=== PATIENT | male | born 1970 | race Caucasian/White ===

== ENCOUNTER 2025-10-15 09:22 | Emergency (ER) | payer BC, SELFPAY ==
[2025-10-15 09:28] VITALS: BP 176/96
[2025-10-15 09:34] VITALS: BMI 42.1
--- NOTE | 2025-10-15 09:54 | ED.GENMED ---
History of Present Illness
General
Chief Complaint: Back Pain
Source: patient
Exam Limitations: none
Time Seen by Provider: 10/15/25 09:33
History of Present Illness
History of Present Illness:
54yoM with a history of hypertension, VERONIKA, obesity, and hypothyroidism presenting with his for evaluation of low back pain. Patient was dressing his child this morning around 7am when he suddenly felt a pop in his low back that brought him to
his knees. He states he was crawling due to the pain. He took 800mg ibuprofen with some improvement. Pain is now an 8/10 in severity. Pain is localized to the lower back and does not radiate. Pain is worse with movement. He is worried that he
may have herniated a disc. He denies any fevers, difficulty urinating, incontinence, fevers, saddle anesthesia, paresthesias, weakness. No prior back surgeries.
Past History
Past History
ED Past Medical History: Hypothyroidism
ED Past Surgical History: None
Social History
Tobacco: Non-smoker
Alcohol: Occasional
Drug: None
Personal:
Living: with family
Employment: Employed
Phy Exam
General Physical Exam
General Presentation: well appearing and no apparent distress
General Skin: warm and dry
General Habitus: normal
General Mental: alert
ENT Exam
ENT Exam: normocephalic
Cardiovascular Exam
Cardiovascular Exam: normal peripheral pulses (2+ PT pulses bilaterally)
Pulmonary Exam
Pulmonary Exam: no respiratory distress
Neurological Exam
Neurological Exam: alert and no motor deficits (5/5 strength in bilateral lower extremities)
Musculoskeletal Exam
Musculoskeletal Exam: other (+Tenderness to midline lower lumbar region. No skin changes or step-offs.)
Skin Exam
Skin Exam: normal color and warm/dry
Psychiatric Exam
Psychiatric Exam: normal mood/affect
Course
Orders/Labs/Results
Orders:
Orders
10/15/25 09:52
Acetaminophen [Tylenol] 1,000 mg PO NOW STA
Lidocaine [Lidocaine 4% Patch] 1 patch TOPICAL NOW STA
Apply Lidocaine patch(s) to:: low back
CR Lumbar Spine Comp Min 4 Vw* Urgent
Comment:
Reason For Exam: low back pain
10/15/25 10:14
Methocarbamol 1,000 mg PO NOW STA
Vital Signs
Initial and Last Documented VS:
Initial Vital Signs
Temp Pulse Resp BP Pulse Ox
98.1 F 63 16 176/96 97
10/15/25 09:28 10/15/25 09:28 10/15/25 09:28 10/15/25 09:28 10/15/25 09:28
Last Documented Vital Signs
Temp Pulse Resp BP Pulse Ox
98.1 F 54 18 153/86 95
10/15/25 09:28 10/15/25 11:54 10/15/25 11:54 10/15/25 11:54 10/15/25 11:54
MDM/Problems Addressed
Differential Diagnosis Includes:
54yoM here with low back pain. [place] a pop this AM while dressing his child. Feeling better after taking ibuprofen. No red flags in history including fevers, saddle anesthesia, incontinence. Midline tenderness on exam. Lower extremities are
neurovascularly intact. Differential diagnosis includes: muscle strain, compression fracture, herniated disc
Initial ED plan: Check lumbar spine x-rays. Patient already took 800mg ibuprofen this morning. Tylenol, Robaxin, and lidocaine patch ordered for pain.
*Pulse Oximetry
SaO2: 97
Oxygen Mode of Delivery: Room air
Patient hypoxic: no
*Critical Care Note
Total Time (30-74mins, 75-104mins- exclusive of procedures): Not Applicable
Update Note
Update Note:
X-rays are negative for fracture. Minimal degenerative disc disease noted. Pain down to a 5/10 in severity on reassessment. He is stable for discharge. Supportive care discussed and prescription provided for Robaxin. He was advised to follow-up
with PCP and orthopedics. ED return precautions reviewed. Patient in agreement with plan and ambulated out of emergency department without assistance.
ED Attending Note
-
Portions of this chart may have been created with voice recognition software.� Occasional wrong word or��sound alike� substitutions may have occurred due to the inherent limitations of voice recognition software.
Discharge Plan
Departure
Patient Disposition: Home (Routine Discharge)
Date of Disposition: 10/15/25
Time of Disposition: 11:45
Patient with high blood pressure during this ER visit?: Yes
Discharge Problem:
Acute low back pain
Instructions: Low Back Pain (DC)
Prescriptions:
New
methocarbamol 1,000 mg tablet
1,000 mg PO TID PRN (Reason: muscle spasms) Qty: 20 0RF
No Action
multivitamin [Pea-[id number]] 1 EACH tablet
1 ea PO DAILY
Tylenol
2 tab PO PRN PRN (Reason: pain)
aspirin [Bhumika Aspirin] 325 MG tablet
325 mg PO DAILY
levothyroxine [Levoxyl] 200 MCG tablet
200 mcg PO DAILY
ibuprofen 600 MG tablet
600 mg PO Q6HPRN PRN (Reason: pain )
oxycodone-acetaminophen 5 MG/325 MG tablet
1 tab PO Q4HPRN PRN (Reason: pain) Qty: 20 0RF
cephalexin 500 MG capsule
500 mg PO QID Qty: 40 0RF
Referrals:
Mayuri Hopkins NP [Family Provider, Family Practice]
Bruce Dunn MD [Active, Orthopedics]
Stand Alone Forms: Return to Work
Activity Restrictions/Additional Instructions:
Take ibuprofen 600mg every 6 hours as needed for pain. You may also take Tylenol. Use lidocaine patches daily (12 hours on, 12 hours off). Take Robaxin (muscle relaxer) as needed for spasms.
Please follow-up with your family doctor and orthopedics. Return to the ER with any new or worsening symptoms including new numbness/weakness or incontinence.
Interventions
Interventions:
*Risk Screen - Suicide Last Done: 10/15/25 09:28
*General Assessment Last Done: 10/15/25 09:41
*Neglect/Abuse Screening Last Done: 10/15/25 09:28
*ED- Fall Risk Assessment Last Done: 10/15/25 09:41
*ED COVID-19 Vaccine History Last Done: 10/15/25 09:41
*ED Influenza Vaccine History Last Done: 10/15/25 09:41
*Nursing Disposition Last Done: 10/15/25 11:54
ED-Musculoskeletal Assessment Last Done: 10/15/25 09:41
Discharge Date and Time
Discharge Date/Time: 10/15/25 11:54
Print Language: AUSTRIAN
[2025-10-15] MEDS: TYLENOL 1000 MG PO (09:57)
[2025-10-15] MEDS: LIDOCAINE 4% PATCH 1 PATCH TOPICAL (09:58)
[2025-10-15] MEDS: METHOCARBAMOL 1000 MG PO (10:27)
[2025-10-15 10:30] VITALS: BP 170/97
[2025-10-15 11:54] VITALS: BP 153/86
== END 2025-10-15 11:54 | disposition home or self-care (01) ==
LOC: EMR 09:22
PROVIDERS: EMERGENCY PHYSICIAN Student in an Organized Health Care Education/Training Program; FAMILY PHYSICIAN Nurse Practitioner Family
DX: M54.50 Low back pain, unspecified (principal); M51.369 Other intervertebral disc degeneration, lumbar region without mention of lumbar back pain or lower extremity pain; I10 Essential (primary) hypertension; G47.33 Obstructive sleep apnea (adult) (pediatric); E66.9 Obesity, unspecified; Z68.41 Body mass index [BMI] 40.0-44.9, adult; E03.9 Hypothyroidism, unspecified
CPT/HCPCS: 99283; 72110